=== PATIENT | male | born 1975 | race Asian ===

== ENCOUNTER 2017-11-08 09:23 | Day surgery (SDC) | payer BC ==
[~2017-11-08] VITALS: Ht 157.5 cm; Wt 74.8 kg
[~2017-11-08 09:23] MED LIST: ASPIRIN 81 LOW81 MG PO; PRILOSEC20 MG PO
[2017-11-08 11:56] VITALS: BP 123/84
== END 2017-11-08 12:15 | disposition home or self-care (01) | DRG 392 ==
LOC: ENDO 09:23 → ORM 09:25 → EDSEX 09:45 → ORM 09:45 → ENDO 11:45 → ORM 11:50 → ENDO 11:50
PROVIDERS: ATTEND Internal Medicine Gastroenterology
PROC: 0DB78ZX Excision of Stomach, Pylorus, Via Natural or Artificial Opening Endoscopic, Diagnostic (ICD-10-PCS; principal; 2017-11-08)
PROC: 0DB48ZX Excision of Esophagogastric Junction, Via Natural or Artificial Opening Endoscopic, Diagnostic (ICD-10-PCS; 2017-11-08)
DX: K21.0 Gastro-esophageal reflux disease with esophagitis (principal); K29.50 Unspecified chronic gastritis without bleeding; Q40.8 Other specified congenital malformations of upper alimentary tract; Z79.899 Other long term (current) drug therapy; Z86.19 Personal history of other infectious and parasitic diseases